=== PATIENT | female | born 1985 | race Caucasian/White ===

== ENCOUNTER → 2019-10-02 | Outpatient (CLI) | payer BC ==
--- NOTE | 2019-10-02 17:07 | US ---
EXAMINATION TYPE: US OB anatomy transabd DATE OF EXAM: 10/02/2019 COMPARISON: NONE HISTORY: Z39.1 Encounter for care and examination of lactat Anatomy TECHNIQUE: Transabdominal (TA) EXAM MEASUREMENTS: GESTATIONAL AGE / DATING Physician Established: (18 weeks/1 days) EDC: 03/03/20 Dates by LMP: unknown Dates by First Scan: no prior scan Dates by Current Scan for: (18 weeks/2 days) EDC: 03/02/2020 SURVEY IUP: Single PLACENTA: Posterior PREVIA: No previa MARLON: 14.4 cm Normal CERVICAL LENGTH (transabdominal: norm > 3.0cm): 3.1 cm BIOMETRY PRESENTATION: Variable LIE: Longitudinal BPD: 4.1 cm 18 weeks / 4 days HC: 14.8 cm 18 weeks / 0 days AC: 12.8 cm 18 weeks / 3 days FL: 2.6 cm 18 weeks / 0 days ESTIMATED WEIGHT IN GRAMS: 226 grams ESTIMATED WEIGHT IN LBS/OZ: 0 lbs. 8 oz. WEIGHT PERCENTAGE BASED ON ESTABLISHED DATE: 45 % HC/AC: 1.2 Normal FL/AC: 20 Normal HEART RATE: 153 bpm RHYTHM: Normal ANATOMY SEEN (within normal limits): * Lateral Vent (< 1 cm) 0.5 cm * Cisterna Magna (< 1.1 cm) 0.3 cm * Nuchal Fold (< 0.6 cm) 0.3 cm * Cerebellum (varies with age) 1.9 cm Choroid Plexus (bilateral) Midline Falx Cavus Septi Pellucidi Four Chamber Heart Stomach Situs Diaphragm Kidneys (bilateral) Bladder Cord Insert Three Vessel Cord Arms (bilateral) Legs (bilateral) ANATOMY NOT SEEN: due to position Outflow tracts: LVOT/RVOT Nose / Lips Longitudinal Spine Transverse Spine IMPRESSION: Single intrauterine gestation estimated at 18 weeks 2 days gestation based on the current ultrasound measurements. This would have a calculated EDC of 03/02/2020. Correlate this with her physician establ ished EDC of 03/03/2020. 2. Cardiac activity measures 153 bpm. 3. Spine, heart out flow tracts and nose and lips were not able to be visualized on the fetus at this positioning. The patient will be recalled for additional imaging to complete the exam.
--- NOTE | 2019-10-15 11:27 | US ---
EXAMINATION TYPE: US OB Call Back DATE OF EXAM: 10/15/2019 COMPARISON: NONE CLINICAL HISTORY: Z39.1 ENCOUNTER FOR CARE. Call back to finish anatomy survey. GESTATIONAL AGE / DATING Dates by Initial Survey Scan: (19 weeks/6 days) EDC: 03/03/2020 HEART RATE: 146 bpm RHYTHM: Normal ANATOMY SEEN (second anatomic survey look): Four Chamber Heart Outflow tracts:? LVOT/RVOT Nose / Lips: wnl Longitudinal Spine: wnl Transverse Spine: wnl Spine, heart structures and nose/lips visualized on today's exam. IMPRESSION: The outflow tracts, nose and lips, and spine appear unremarkable.
== END | disposition home or self-care (01) ==
LOC: RADUSWWP 07:48
PROVIDERS: ATTEND Obstetrics & Gynecology
DX: Z39.1 Encounter for care and examination of lactating mother (principal); Z3A.18 18 weeks gestation of pregnancy
CPT/HCPCS: 76811